=== PATIENT | female | born 1935 | race Caucasian/White ===

== ENCOUNTER 2017-05-04 10:55 | Outpatient (CLI) | payer MEDICARE ==
[~2017-05-04] VITALS: Ht 160 cm; Wt 51.3 kg
[~2017-05-04 10:55] MED LIST: POTA20LI2 PO; VRP240TCR PO
[2017-05-04] MEDS ORDERED: MELA1TAB27 PO (11:07)
[2017-05-04] MEDS ORDERED: SPIR1TAB PO (11:07)
[2017-05-04] MEDS ORDERED: DONE10TA41 PO (11:07)
[2017-05-11] MEDS ORDERED: TRAM50TA2 PO (12:46)
== END 2017-05-04 11:13 ==
LOC: PREOP 10:55
PROVIDERS: ATTEND Surgery
DX: Z01.818 Encounter for other preprocedural examination (principal); L98.9 Disorder of the skin and subcutaneous tissue, unspecified

== ENCOUNTER 2017-05-11 10:08 | Day surgery (SDC) | payer MEDICARE ==
[~2017-05-11] VITALS: Ht 160 cm; Wt 51.3 kg
[~2017-05-11 10:08] MED LIST changes: +DONE10TA41 PO; +MELA1TAB27 PO; +SPIR1TAB PO
[2017-05-11] MEDS ORDERED: ONDANSETRON 4 MG/2 ML (SDV) Z0FRAN ONE (10:40)
[2017-05-11] MEDS ORDERED: FAMOTIDINE 20MG/2ML IV (PEPCID) ONE (10:41)
[2017-05-11] MEDS ORDERED: BUP/EPI 0.5% 1:200,000 (MARCAINE) 10ML VIAL IJ ONE (10:42)
[2017-05-11] MEDS ORDERED: EPINEPHrine INJECTION 1 MG/ML AMP ONE (10:43)
[2017-05-11] MEDS ORDERED: DEXAMETHASONE 10 MG/ML (DECADRON) 1 ML VIAL ONE (10:44)
[2017-05-11] MEDS ORDERED: proPOfol 200 MG/20 ML (DIPRIVAN) VIAL IV ONE (10:44)
[2017-05-11] MEDS ORDERED: fentaNYL INJECTION 100 MCG/2 ML AMP ONE (10:44)
--- NOTE | 2017-05-11 10:49 | Progress Note-Pre Operative ---
Pre-Operative Progress Note H&P Reviewed The H&P was reviewed, patient examined and no changes noted. Date Seen by Provider: May 03, 2017 Time Seen by Provider: 13:10 Date H&P Reviewed: May 11, 2017 Time H&P Reviewed: 10:49 Pre-Operative Diagnosis: Skin lesion-left leg JEREMI KEN MD May 11, 2017 10:49 am
[2017-05-11] MEDS: LACTATED RINGERS 1,000 ML IV PRN ×2 (10:53→12:19)
[2017-05-11 11:00] VITALS: BP 141/62
[2017-05-11] MEDS ORDERED: ceFAZolin 1 GM/NS 50 ML IVPB IV ONE ×2 (11:00)
[2017-05-11] MEDS ORDERED: ONDANSETRON 4 MG/2 ML (SDV) Z0FRAN IV ONE (11:00)
[2017-05-11] MEDS ORDERED: FAMOTIDINE 20MG/2ML IV (PEPCID) IV ONE (11:00)
[2017-05-11] MEDS ORDERED: SEVOFLURANE (ULTANE) 15 ML INHAL SOLN ONE (12:21)
[2017-05-11] MEDS ORDERED: LACTATED RINGERS 2,000 ML IV ONE (12:21)
[2017-05-11] MEDS ORDERED: fentaNYL INJECTION 100 MCG/2 ML AMP IVP PRN (12:30)
[2017-05-11] MEDS ORDERED: morphine INJ 10 MG/ML 1ML (SYR OR VIAL) IVP PRN (12:30)
[2017-05-11] MEDS ORDERED: TRAM50TA2 PO (12:46)
--- NOTE | 2017-05-11 12:47 | Discharge Inst-Simple/Standard ---
Discharge Inst-Standard Discharge Medications New, Converted or Re-Newed RX: RX on Chart Patient Instructions/Follow Up Plan of Care/Instructions/FU: Left leg to be kept elevated. Dressings to stay intact till next Sunday. F/U with my nurse on Sunday for dressing change Activity as Tolerated: Yes Discharge Diet: No Restrictions JEREMI KEN MD May 11, 2017 12:47 pm
--- NOTE | 2017-05-11 12:48 | Discharge Inst-Simple/Standard ---
Discharge Inst-Standard Discharge Medications New, Converted or Re-Newed RX: RX on Chart Patient Instructions/Follow Up Plan of Care/Instructions/FU: Left leg to be kept elevated. Dressings to stay intact till next Sunday. F/U with my nurse on Sunday Activity as Tolerated: Yes Discharge Diet: No Restrictions JEREMI KEN MD May 11, 2017 12:48 pm
--- NOTE | 2017-05-11 13:13 | Operative Report ---
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 She was offered excision with frozen section to confirm the diagnosis and ensure negative margins, should a carcinoma be found, followed immediately by split-thickness skin grafting. Informed consent was obtained after reviewing the operative details and complications of postoperative wound infection, bleeding and failure of the graft. description of the procedure: She was placed supine on the operative table and general anesthesia induced. A gram of Ancef was administered intravenously as prophylaxis against wound infection. Left lower extremity was prepared and draped in the usual sterile manner. A split thickness skin graft was obtained from her left anterior thigh using the dermatome. It was placed in saline, to be prepared for grafting and the end of the operation. Pre-emptive analgesia was established using 0.5 percent Marcaine around the lesion over the left leg. A circular incision 5 cm longitudinally by 4 cm transversely was made and the lesion excised down to the deep fascia. It was oriented with silk sutures and sent for frozen section analysis. The pathologist confirmed a squamous cell carcinoma with negative margins. Hemostasis was achieved using cautery and topical dilute epinephrine solution. The skin graft was then prepared using the mesh dermatome and placed over the excision site, being secured with justice. A nonadherent dressing was then applied. She tolerated the procedure well, was extubated in the operating room and taken to the recovery room in a stable condition. Findings of the Procedure see operative report Allergies and Home Medications Allergies Coded Allergies: No Known Drug Allergies (Unverified , 09/26/11) Home Medications Donepezil HCl 10 Mg Tablet, 10 MG PO DAILY, (Reported) Melatonin/Pyridoxine HCl (B6) 1 Each Tablet, 3 MG PO HS, (Reported) Spironolact/Hydrochlorothiazid 1 Each Tablet, 1 EACH PO DAILY, (Reported) Tramadol HCl 50 Mg Tablet, 50 MG PO Q12H PRN for PAIN-MILD TO MODERATE, #20 Prescribed by: JEREMI KEN on 05/11/17 1246 JEREMI KEN MD May 11, 2017 1:13 pm
[2017-05-11 13:15] VITALS: BP 129/55
[2017-05-11 13:45] VITALS: BP 117/58
[2017-05-11 14:15] VITALS: BP 126/57
== END 2017-05-11 14:15 | disposition home or self-care (01) ==
LOC: SDC 10:08
PROVIDERS: ATTEND Surgery
DX: C44.729 Squamous cell carcinoma of skin of left lower limb, including hip (principal); I10 Essential (primary) hypertension; Z79.899 Other long term (current) drug therapy
CPT/HCPCS: 87081; 88305; 88331; 88332

== ENCOUNTER 2017-05-13 22:07 | Inpatient (IN) | payer MEDICARE ==
[~2017-05-13] VITALS: Ht 165.1 cm; Wt 55.6 kg
[~2017-05-13 22:07] MED LIST changes: +TRAM50TA2 PO
[2017-05-13] MEDS ORDERED: NS IV 500 ML 500 ML IV ONE (22:13)
--- NOTE | 2017-05-13 22:18 | ED Syncope ---
General Stated Complaint: FAINT Source of Information: Patient, Family (daughter) Exam Limitations: Physical Impairments (poor memory) History of Present Illness Time Seen by Provider: 22:11 Initial Comments Patient presents the ER by private conveyance with her niece who is sitting with her today with a chief complaint that she had passed out. The patient has recently had a skin cancer removed from her left lower leg by Dr. Ken, General Surgery. He then did a skin graft a few days ago and the family has been taking turns sitting with her 24 7 at her home in [facility]. The patient was doing well today without any complaint and was sitting in her easy chair started to get up and said she felt very unstable put her hands and air eyes rolled backwards and she fell backwards and fainted. Unsure if she had hit her head however the patient was not out for more than a few seconds. Patient gives a history of living with her parents who have been for many years and is not aware of the current situation or why she is had surgery. The niece says she did complain of some pain from the surgery so the surgeon who called also and tramadol and the patient received her first dose at 11:00 this morning and since that time has been acting a little drowsy. The patient has a unknown medicine she takes for sleep that was given about 8 to 9:00 tonight. After was given the patient was in her easy chair snoozing until the point that she got up to go to bed and then passed out and fell. The patient denies any pain, shortness of breath, chest pain, nausea, vomiting, diarrhea, rash, dysmobility. Allergies and Home Medications Allergies Coded Allergies: No Known Drug Allergies (Unverified , 09/26/11) Home Medications Donepezil HCl 10 Mg Tablet, 10 MG PO DAILY, (Reported) Melatonin/Pyridoxine HCl (B6) 1 Each Tablet, 3 MG PO HS, (Reported) Spironolact/Hydrochlorothiazid 1 Each Tablet, 1 EACH PO DAILY, (Reported) Tramadol HCl 50 Mg Tablet, 50 MG PO Q12H PRN for PAIN-MILD TO MODERATE, #20 Prescribed by: JEREMI KEN on 05/11/17 1246 Constitutional: see HPI (a thorough review of systems is unable to be completed as the patient does not give meaningful answers secondary to dementia. ) Past Veajomn-Njrkzj-Hwudja Hx Patient Social History Recent Foreign Travel: No Contact w/Someone Who Travel: No Recent Hopitalizations: No Immunizations Up To Date Date of Influenza Vaccine: Jun 26, 2011 Seasonal Allergies Seasonal Allergies: Yes Cardiovascular Cardiac Disorders: Hypertension Physical Exam Vital Signs Vital Sign - Last 12Hours 05/13/17 22:07 Temp 96.1 Pulse 65 Resp 17 B/P (MAP) 136/76 Pulse Ox 96 O2 Delivery Room Air Capillary Refill : General Appearance: No Apparent Distress, WD/WN, Thin HEENT: PERRL/EOMI, TMs Normal, Normal ENT Inspection, Pharynx Normal (oral mucosa is a little dry) Neck: Full Range of Motion, Normal Inspection, Non Tender, Supple Cardiovascular: Regular Rate, Rhythm, No Edema, No JVD, Normal Peripheral Pulses Respiratory: Chest Non Tender, Lungs Clear, Normal Breath Sounds, No Accessory Muscle Use Gastrointestinal: Normal Bowel Sounds, No Organomegaly, Non Tender, Soft Back: Normal Inspection, No CVA Tenderness, No Vertebral Tenderness Extremities: Normal Capillary Refill, Non Tender, No Calf Tenderness, No Pedal Edema Neurologic/Psychiatric: Alert, No Motor/Sensory Deficits, Normal Mood/Affect, analyst II-XII Norm as Tested, Other (oriented to self and place but not situation or time) Cranial Nerves: Normal Hearing, Normal Speech, PERRL Coordination/Gait: Normal Finger to Nose, Other (transfers with standby assist from wheelchair to bed.) Motor/Sensory: No Motor Deficit, No Sensory Deficit, No Pronator Drift Skin: Normal Color, Warm/Dry Lymphatic: No Adenopathy Focused Exam Evaluation Lactate Level Laboratory Tests 05/13/17 22:18: Lactic Acid Level 2.31*H Lactic Acid Level Laboratory Tests Test 05/13/17 22:18 Lactic Acid Level 2.31 MMOL/L (0.50-2.00) *H Progress/Results/Core Measures Results/Orders Lab Results Laboratory Tests Test 05/13/17 22:18 05/13/17 22:28 Range/Units White Blood Count 7.8 4.3-11.0 10^3/uL Red Blood Count 4.16 L 4.35-5.85 10^6/uL Hemoglobin 13.1 11.5-16.0 G/DL Hematocrit 40 35-52 % Mean Corpuscular Volume 96 80-99 FL Mean Corpuscular Hemoglobin 32 25-34 PG Mean Corpuscular Hemoglobin Concent 33 32-36 G/DL Red Cell Distribution Width 13.9 10.0-14.5 % Platelet Count 375 130-400 10^3/uL Mean Platelet Volume 9.0 7.4-10.4 FL Neutrophils (%) (Auto) 53 42-75 % Lymphocytes (%) (Auto) 27 12-44 % Monocytes (%) (Auto) 12 0-12 % Eosinophils (%) (Auto) 7 0-10 % Basophils (%) (Auto) 1 0-10 % Neutrophils # (Auto) 4.2 1.8-7.8 X 10^3 Lymphocytes # (Auto) 2.1 1.0-4.0 X 10^3 Monocytes # (Auto) 1.0 0.0-1.0 X 10^3 Eosinophils # (Auto) 0.6 H 0.0-0.3 10^3/uL Basophils # (Auto) 0.0 0.0-0.1 10^3/uL Sodium Level 139 135-145 MMOL/L Potassium Level 3.6 3.6-5.0 MMOL/L Chloride Level 99 98-107 MMOL/L Carbon Dioxide Level 28 21-32 MMOL/L Anion Gap 12 5-14 MMOL/L Blood Urea Nitrogen 22 H 7-18 MG/DL Creatinine 0.92 0.60-1.30 MG/DL Estimat Glomerular Filtration Rate 59 BUN/Creatinine Ratio 24 Glucose Level 136 H 70-105 MG/DL Lactic Acid Level 2.31 *H 0.50-2.00 MMOL/L Calcium Level 9.6 8.5-10.1 MG/DL Magnesium Level 2.3 1.8-2.4 MG/DL Total Bilirubin 0.3 0.1-1.0 MG/DL Aspartate Amino Transf (AST/SGOT) 19 5-34 U/L Alanine Aminotransferase (ALT/SGPT) 19 0-55 U/L Alkaline Phosphatase 149 H 40-136 U/L Total Protein 7.2 6.4-8.2 GM/DL Albumin 3.6 3.2-4.5 GM/DL Urine Color YELLOW Urine Clarity CLEAR Urine pH 6 5-9 Urine Specific [place] 1.020 1.016-1.022 Urine Protein 1+ H NEGATIVE Urine Glucose (UA) NEGATIVE NEGATIVE Urine Ketones NEGATIVE NEGATIVE Urine Nitrite NEGATIVE NEGATIVE Urine Bilirubin NEGATIVE NEGATIVE Urine Urobilinogen NORMAL NORMAL MG/DL Urine Leukocyte Esterase NEGATIVE NEGATIVE Urine RBC (Auto) NEGATIVE NEGATIVE Urine RBC RARE /HPF Urine WBC 0-2 /HPF Urine Crystals NONE /LPF Urine Bacteria TRACE /HPF Urine Casts NONE /LPF Urine Mucus SMALL H /LPF Urine Culture Indicated NO My Orders Orders - KAMARI KAUFMAN Ct Head/Cervical Spine Wo (05/13/17 22:13) Cbc With Automated Diff (05/13/17 22:13) Comprehensive Metabolic Panel (05/13/17 22:13) Lactic Acid Analyzer (05/13/17 22:13) Magnesium (05/13/17 22:13) Ua Culture If Indicated (05/13/17 22:13) Blood Culture (05/13/17 22:13) Chest 1 View, Ap/Pa Only (05/13/17 22:13) Saline Lock/Iv-Start (05/13/17 22:13) Ns Iv 500 Ml (Sodium Chloride 0.9%) (05/13/17 22:13) Ekg Tracing (05/13/17 22:15) Continuous Ekg Monitoring (05/13/17 22:15) Orthostatic Vital Signs (05/13/17 22:18) Aspirin Chewable Tablet (Baby Aspirin Ch (05/13/17 22:45) Saline Lock/Iv-Start (05/13/17 23:06) Ns Iv 1000 Ml (Sodium Chloride 0.9%) (05/13/17 23:06) Piperacillin Sodium/Tazobactam (Zosyn Vi (05/14/17 01:15) Medications Given in ED Current Medications Medications Dose Ordered Sig/Pelon Route Start Time Stop Time Status Last Admin Dose Admin Aspirin 324 mg ONCE ONCE PO 05/13/17 22:45 05/13/17 22:46 DC 05/13/17 22:39 324 MG Sodium Chloride 500 ml @ 0 mls/hr Q0M ONCE IV 05/13/17 22:13 05/13/17 22:16 DC 05/13/17 22:24 500 MLS/HR Sodium Chloride 1,000 ml @ 0 mls/hr Q0M ONCE IV 05/13/17 23:06 05/13/17 23:07 DC 05/13/17 23:19 1,000 MLS/HR Vital Signs/I&O Vital Sign - Last 12Hours 05/13/17 05/13/17 22:07 22:41 Temp 96.1 Pulse 65 70 75 74 Resp 17 B/P (MAP) 136/76 Pulse Ox 96 O2 Delivery Room Air ECG Initial ECG Impression Date: May 13, 2017 Initial ECG Impression Time: 22:09 Initial ECG Rate: 66 Initial ECG Rhythm: Normal Sinus Initial ECG Intervals: QT (499) Initial ECG Intervals QRS prolonged at 146. Initial ECG Impression: Normal, Nonspecific Changes Initial ECG Comparisson: No Previous ECG Available Comment Left bundle branch block with subsequent elevations in the anterior leads and a depression in the lateral leads. Diagnostic Imaging Diagonstic Imaging: Xray Plain Films/CT/US/NM/MRI: chest Reviewed: Reviewed by Me Diagonstic Imaging: CT Plain Films/CT/US/NM/MRI: c-spine, head Reviewed: Reviewed Night Rafael Study, Reviewed by Me Consults Consults : Consulting Physician: NURIA GUSMAN MD FACP [facility] CCDS Consults Notes Discussed the case at 2222 of the left bundle branch block but no symptoms other than syncope. He recommends aspirin and if the rest the workup for her syncope is negative then we can start her on Lovenox 1 mg/kg and he would consult the patient. He recommends clear liquid diet and the morning. Departure Communication (Admissions) Time/Spoke to Admitting Phy: 01:[address] Healy about the patient and her elevated lactate and possible cellulitis versus wound infection. He'll see the patient in the morning and consult surgery if needed. He agrees with the choice of vancomycin and Zosyn. Impression Impression: Primary Impression: Cellulitis Qualified Codes: L03.116 - Cellulitis of left lower limb Additional Impressions: Wound infection after surgery Qualified Codes: T81.4XXA - Infection following a procedure, initial encounter Sepsis Qualified Codes: A41.9 - Sepsis, unspecified organism Syncope Qualified Codes: R55 - Syncope and collapse Fall Qualified Codes: W19.XXXA - Unspecified fall, initial encounter Disposition: ADMITTED INPATIENT Condition: Stable Admissions Decision to Admit Reason: Admit from ER (General) Decision to Admit/Date: May 14, 2017 Time/Decision to Admit Time: 01:25 Departure-Patient Inst. Referrals: ATIYA HEALY MD (PCP) Primary Care Physician Copy Copies To 1: ATIYA HEALY MD Copies To 2: JEREMI KEN MD, TITUS J May 13, 2017 22:17
[2017-05-13 22:25] LABS: BASOPHILS % (AUTO) 1 % (0-10); EOSINOPHILS # (AUTO) 0.6 10^3/uL (0.0-0.3); EOSINOPHILS % (AUTO) 7 % (0-10); LYMPHOCYTES # (AUTO) 2.1 X 10^3 (1.0-4.0); LYMPHOCYTES % (AUTO) 27 % (12-44); MEAN CORPUSCULAR HEMOGLOBIN 32 PG (25-34); MEAN CORPUSCULAR HGB CONC 33 G/DL (32-36); MEAN CORPUSCULAR VOLUME 96 FL (80-99); MONOCYTES % (AUTO) 12 % (0-12); NEUTROPHILS # (AUTO) 4.2 X 10^3 (1.8-7.8); NEUTROPHILS % (AUTO) 53 % (42-75); PLATELET COUNT 375 10^3/uL (130-400); RED BLOOD COUNT 4.16 10^6/uL (4.35-5.85); RED CELL DISTRIBUTION WIDTH 13.9 % (10.0-14.5); WHITE BLOOD COUNT 7.8 10^3/uL (4.3-11.0)
[2017-05-13 22:40] LABS: BILIRUBIN,URINE NEGATIVE (NEGATIVE); KETONES,URINE NEGATIVE (NEGATIVE); LEUKOCYTE ESTERASE ,URINE NEGATIVE (NEGATIVE); NITRITE,URINE NEGATIVE (NEGATIVE); PH,URINE 6 (5-9); PROTEIN,URINE 1+ (NEGATIVE); UROBILINOGEN,URINE NORMAL (NORMAL)
[2017-05-13] MEDS ORDERED: ASPIRIN 81 MG CHEW (CHILDREN'S ASA) PO ONE (22:45)
[2017-05-13 22:51] LABS: ALBUMIN 3.6 GM/DL (3.2-4.5); BILIRUBIN,TOTAL 0.3 MG/DL (0.1-1.0); CALCIUM 9.6 MG/DL (8.5-10.1); CREATININE SERUM 0.92 MG/DL (0.60-1.30); MAGNESIUM 2.3 MG/DL (1.8-2.4); POTASSIUM 3.6 MMOL/L (3.6-5.0); TOTAL PROTEIN 7.2 GM/DL (6.4-8.2)
[2017-05-13 23:05] LABS: WBC,URINE 0-2 /HPF
[2017-05-13] MEDS ORDERED: NS IV 1000 ML 1,000 ML IV ONE (23:06)
[2017-05-14] MEDS ORDERED: PIPERACILLIN SODIUM/TAZOBACTAM 4.5 GM in NS (IVPB) 100 ML IV ONE (01:15)
[2017-05-14 02:10] VITALS: BP 121/62
[2017-05-14] MEDS ORDERED: NS IV 1000 ML 1,000 ML ONE (02:59)
[2017-05-14] MEDS: NS IV 1000 ML 1,000 ML IV SCH (03:56)
[2017-05-14 04:00] VITALS: BP 116/67
[2017-05-14] MEDS ORDERED: ONDANSETRON 4 MG/2 ML (SDV) Z0FRAN IV PRN (04:00)
[2017-05-14] MEDS ORDERED: VANCOMYCIN 1 GM/NS 250 ML IVPB IV ONE ×2 (04:00)
[2017-05-14] MEDS ORDERED: PIPERACILLIN/TAZOBACTAM 4.5 GM/NS100 ML IVPB IV SCH ×2 (07:15)
[2017-05-14 08:00] VITALS: BP 127/65
[2017-05-14] MEDS ORDERED: TRAM50TA2 PO (08:04)
--- NOTE | 2017-05-14 08:18 | Diagnostic Imaging Report ---
INDICATION: Syncope. Frontal chest obtained at 10:56 p.m. FINDINGS: Heart and mediastinal silhouette are normal in appearance. There is mild central vascular prominence with chronic appearing increased interstitial markings. There is no acute consolidation or pneumothorax or pleural fluid. IMPRESSION: Chronic changes as above with no acute abnormality. Dictated by: Dictated on workstation # [id number]
--- NOTE | 2017-05-14 08:28 | Diagnostic Imaging Report ---
PROCEDURE: CT head and CT cervical spine without contrast. TECHNIQUE: Multiple contiguous axial images were obtained through the brain and cervical spine without the use of intravenous contrast. Sagittal and coronal reformations through the cervical spine were then performed. INDICATION: Possible syncopal episode. FINDINGS: CT head: There is no intracranial hemorrhage, edema, or mass effect. There is periventricular and deep white matter hypodensities compatible with chronic microvascular ischemic changes. No extra-axial fluid collection is seen. There is asymmetry in the right occipital horn which could be a normal variant or related to ex vacuo dilatation from volume loss in the right occipital region, in part may relate to chronic microvascular ischemic changes. The calvarium and the paranasal sinuses appear unremarkable. There is suggestion of prior orbital surgery with hyperdense foci along the anterior aspect of the globes seen bilaterally. CT cervical spine: There is satisfactory alignment of the cervical spine. There is minimal anterior translation of C4 over C5. The vertebral body heights are preserved. 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 There is disc height loss and disc degenerative changes particularly prominent at C5-C6 level with posterior osteophytes seen at C4-C5, C5-C6, and C6-C7. There is multilevel prominent facet joint arthropathy also seen. No fracture seen. IMPRESSION: CT head: No intracranial hemorrhage. No acute process. CT cervical spine: Advanced degenerative changes. No fracture seen. Dictated by: Dictated on workstation # [id number]
[2017-05-14] MEDS ORDERED: MULT-35 PO (08:38)
[2017-05-14] MEDS ORDERED: LORA10TA76 PO (08:38)
--- NOTE | 2017-05-14 09:17 | Consultation-Cardiology ---
HPI-Cardiology Cardiology Consultation: Date of Consultation 05/14/17 Time Seen by Provider: 09:00 Date of Admission Attending Physician Baljeet Healy MD Admitting Physician Baljeet Healy MD Consulting Physician NURIA GUSMAN MD, MA, FACP, FACC, FSCAI, CCDS HPI: Chief Complaint: Passed out 81 yo woman who suffers from Alzheimer's, lives at home, and is cared for by family. She had removal of L leg skin cancer with grafting of the wound with a flap from the R leg on 05/11/[address] Stock. Was having leg pain yesterday morning, received Tramadol for that around 11 am. Had a syncopal episode around 9pm. Was sitting, head was hurting, then she became clammy and her eyes rolled back, remained seated. Apparently, this did not last long. She was brought to her ER. She did not have cp. Does not describe shortness of breath or palp Review of Systems-Cardiology Review of Systems Constitutional: tiredness, No weight loss Eyes: No vision change Ears/Nose/Throat: No ear discharge, No nasal drainage, No recent hearing loss Respiratory: As described under HPI Cardiovascular: As described under HPI Gastrointestinal: No constipation, No diarrhea, No nausea, No vomiting Genitourinary: No dysuria, No hematuria, No urine frequency changes Skin: As described under HPI Psychiatric/Neurological: syncope, No seizure, No focal weakness Hematologic: No bleeding abnormalities YBT-Fghvrb-Ghqbij Hx Patient Social History Alcohol Use: Denies Use Recreational Drug Use: No Smoking Status: Never a Smoker Recent Foreign Travel: No Recent Infectious Disease Expo: No Hospitalization with Isolation: Denies Physical Abuse Screen: No Sexual Abuse: No Immunizations Up To Date Date of Influenza Vaccine: Jun 26, 2011 Past Medical History PMH As described under Assessment. Family Medical History Family Medical History: Family h/o CAD (brothers) Allergies and Home Medications Allergies Coded Allergies: No Known Drug Allergies (Unverified , 09/26/11) Home Medications Donepezil HCl 10 Mg Tablet, 10 MG PO DAILY, (Reported) Loratadine 10 Mg Tablet, 10 MG PO DAILY PRN for ALLERGIES, (Reported) Melatonin/Pyridoxine HCl (B6) 1 Each Tablet, 3 MG PO HS, (Reported) Multivitamin 1 Each Tablet, 1 TAB PO DAILY, (Reported) Spironolact/Hydrochlorothiazid 1 Each Tablet, 1 TAB PO Q48H, (Reported) Tramadol HCl 50 Mg Tablet, 50 MG PO Q12H PRN for PAIN-MODERATE, (Reported) Physical Exam-Cardiology Physical Exam Vital Signs/I&O Vital Sign - Last 12Hours 05/13/17 05/13/17 05/14/17 05/14/17 22:07 22:41 01:57 02:10 Temp 96.1 97.0 Pulse 65 70 63 66 75 74 Resp 17 16 22 B/P (MAP) 136/76 121/62 Pulse Ox 96 99 100 O2 Delivery Room Air Room Air Room Air 05/14/17 05/14/17 05/14/17 02:15 02:52 04:00 Temp 96.8 Pulse 62 69 Resp 20 B/P (MAP) 116/67 Pulse Ox 95 O2 Delivery Room Air Room Air Capillary Refill : Less Than 3 Seconds Constitutional: No AAO x 3, well-developed, well-nourished, other (thin- appearing) HEENT: PERRL, EOMI Neck: No non-tender, carotid pulses are 2 + bilaterally, with good upstrokes Respiratory: No accessory muscle use, lungs clear to percussion, lungs clear to auscultation Cardiovascular: regular rate-rhythm, S1 and S2, systolic murmur (faint ZION at cardiac base) Gastrointestinal: No tender, soft, No guarding, No rebound, audible bowel sounds Extremities: No clubbing, No cyanosis, No significant edema Neurologic/Psychiatric: other (confused, moving all limbs equally) Skin: No rash on exposed areas, No ulcerations on exposed areas, other (parts of lower limbs under dressing) Data Review Labs Laboratory Tests 05/13/17 22:18: White Blood Count 7.8, Red Blood Count 4.16L, Hemoglobin 13.1, Hematocrit 40, Mean Corpuscular Volume 96, Mean Corpuscular Hemoglobin 32, Mean Corpuscular Hemoglobin Concent 33, Red Cell Distribution Width 13.9, Platelet Count 375, Mean Platelet Volume 9.0, Neutrophils (%) (Auto) 53, Lymphocytes (%) (Auto) 27, Monocytes (%) (Auto) 12, Eosinophils (%) (Auto) 7, Basophils (%) (Auto) 1, Neutrophils # (Auto) 4.2, Lymphocytes # (Auto) 2.1, Monocytes # (Auto) 1.0, Eosinophils # (Auto) 0.6H, Basophils # (Auto) 0.0, Sodium Level 139, Potassium Level 3.6, Chloride Level 99, Carbon Dioxide Level 28, Anion Gap 12, Blood Urea Nitrogen 22H, Creatinine 0.92, Estimat Glomerular Filtration Rate 59, BUN/ Creatinine Ratio 24, Glucose Level 136H, Lactic Acid Level 2.31*H, Calcium Level 9.6, Magnesium Level 2.3, Total Bilirubin 0.3, Aspartate Amino Transf (AST /SGOT) 19, Alanine Aminotransferase (ALT/SGPT) 19, Alkaline Phosphatase 149H, Total Protein 7.2, Albumin 3.6 05/13/17 22:28: Urine Color YELLOW, Urine Clarity CLEAR, Urine pH 6, Urine Specific [place] 1.020, Urine Protein 1+H, Urine Glucose (UA) NEGATIVE, Urine Ketones NEGATIVE, Urine Nitrite NEGATIVE, Urine Bilirubin NEGATIVE, Urine Urobilinogen NORMAL, Urine Leukocyte Esterase NEGATIVE, Urine RBC (Auto) NEGATIVE, Urine RBC RARE, Urine WBC 0-2, Urine Crystals NONE, Urine Bacteria TRACE, Urine Casts NONE, Urine Mucus SMALLH, Urine Culture Indicated NO 05/14/17 01:30: Lactic Acid Level 1.46 Laboratory Tests 05/13/17 22:18 A/P-Cardiology Assessment/Admission Diagnosis Syncope of undetermined etiology S/p surgery for squamous cell CA of the L leg with skin grafting from the opposite leg on 05/11/17 Question of sepsis (being addressed by the Med Svce) LBBB, probably chronic (no old ECG available) No evidence of ac UT Alzheimer's dementia Discussion and Recomendations Cardiac d/d of syncope include vasovagal (due to pain) or dehydration or arrhythmia Keep on tele Echo Continue ASA Lovenox for DVT prophylaxis Monitor labs Possible d/c tomorrow with an event monitor Clinical Quality Measures DVT/VTE Risk/Contraindication: Risk Factor Score Per Nursin RFS Level Per Nursing on Admit: 4+=Very High NURIA GUSMAN MD FACP [facility] CCDS May 14, 2017 09:17
--- NOTE | 2017-05-14 11:35 | History & Physical-Hospitalist ---
HPI History of Present Illness: HPI/Chief Complaint CC: Passing out HPI: 81yoCf with a PMH of Alzheimers and recent SCC excision and grafting on who presented for evaluation of syncope. History is limited due to patient 's dementia. Niece at beside was not present when incident happened but was aware of some details. When I asked the patient what happened she stated 'I went to the grocery store yesterday." Niece states that she was sitting in a chair and passed out. She is unsure of for how long but thinks it was a very short time. She was somewhat confused afterwards. She did not have any convulsions. Patient denies any complaints or recollection of event. Source: patient, family Exam Limitations: clinical condition Date Seen 05/14/17 Time Seen by Provider: 11:00 Attending Physician Atiya Healy MD PCP Atiya Healy MD Referring Physician NURIA GUSMAN MD FACP FACC CCDS Date of Admission May 14, 2017 at 01:30 Home Medications & Allergies Home Medications Reviewed patient Home Medication Reconciliation Form Allergies Allergies Coded Allergies No Known Drug Allergies (Unverified09/26/11) Past Hjovthd-Tivlld-Noqomn Hx Patient Social History Alcohol Use: Denies Use Recreational Drug Use: No Smoking Status: Never a Smoker Physical Abuse Screen: No Sexual Abuse: No Recent Foreign Travel: No Contact w/other who traveled: No Recent Hopitalizations: No Recent Infectious Disease Expo: No Immunizations Up To Date Date of Influenza Vaccine: Jun 26, 2011 Seasonal Allergies Seasonal Allergies: No Surgeries Yes Respiratory No Cardiovascular Yes (mitral valve prolapse) Hypertension Neurological Yes Dementia Genitourinary No Gastrointestinal No Musculoskeletal No Endocrine History of Endocrine Disorders: No HEENT History of HEENT Disorders: No Cancer Yes (squamous cell carcinoma) Skin Psychosocial History of Psychiatric Problem: No Integumentary History of Skin or Integumenta: No Blood Transfusions History of Blood Disorders: No Adverse Reaction to a Blood Tr: No Family Medical History Significant Family History: No Pertinent Family Hx Review of Systems ROS-Unable to Obtain: limited due to dementia Constitutional: no symptoms reported, No fever EENTM: nose congestion, throat pain Respiratory: cough Cardiovascular: no symptoms reported Gastrointestinal: No abdominal pain Genitourinary: no symptoms reported Musculoskeletal: no symptoms reported Skin: hx of skin cancer Psychiatric/Neurological: See HPI Physical Exam Physical Exam Vital Signs Vital Sign - Last 12Hours 05/13/17 22:07 Temp 96.1 Pulse 65 Resp 17 B/P (MAP) 136/76 Pulse Ox 96 O2 Delivery Room Air Capillary Refill : Less Than 3 Seconds General Appearance: No Apparent Distress, WD/WN Neck: Non Tender, Supple Respiratory: Chest Non Tender, Normal Breath Sounds Cardiovascular: Regular Rate, Rhythm, No Edema, No JVD, No Murmur Gastrointestinal: Normal Bowel Sounds, Soft Genital/Rectal: Other (cai in place) Extremity: Normal Capillary Refill, No Pedal Edema Neurologic/Psychiatric: Alert, Disoriented x3 Skin: Other (left lower extremity with dressings of upper and lower leg- some erythema distally) Results Results/Procedures Lab Laboratory Tests 05/13/17 22:18 Assessment/Plan Admission Diagnosis Syncope Assessment and Plan See Problems Diagnosis/Problems Diagnosis/Problems (1) Syncope Status: Acute Assessment & Plan: Etiology unclear at this time though favorite volume depletion given lactic acidosis Cardiology consulted, appreciate recs Will get echo and monitor on telemetry Continue IVF Qualifiers: Qualified Codes: R55 - Syncope and collapse (2) Cellulitis Status: Acute Assessment & Plan: Will continue Vanc/Zosyn given recent surgical procedure Surgery consulted for evaluation of surgical and graft site Qualifiers: Qualified Codes: L03.116 - Cellulitis of left lower limb (3) Essential (primary) hypertension Status: Chronic Assessment & Plan: Well controlled currently, will hold home meds (4) Alzheimer disease Status: Chronic Assessment & Plan: At baseline per niece who is primary mems process engineer Continue Aricept (5) Prophylactic measure Assessment & Plan: regular diet Lovenox NS at 52 Copy Copies To 1: ATIYA HEALY MD Clinical Quality Measures DVT/VTE Risk/Contraindication: Risk Factor Score Per Nursin RFS Level Per Nursing on Admit: 4+=Very High JUDE TOLENTINO MD May 14, 2017 11:35
[2017-05-14] MEDS ORDERED: VANCOMYCIN INJECTION 0.1 MG in NS (IVPB) 250 ML IV SCH (11:45)
[2017-05-14 12:00] VITALS: BP 120/58
[2017-05-14] MEDS: MONTELUKAST 10 MG (SINGULAIR) TAB PO SCH ×2 (13:49→20:52)
[2017-05-14] MEDS: PIPERACILLIN SODIUM/TAZOBACTAM 4.5 GM in NS (IVPB) 100 ML IV SCH ×2 (13:50→22:50)
--- NOTE | 2017-05-14 17:34 | Progress Note-Standard ---
Standard Progress Note Progress Notes/Assess & Plan Date Seen by Provider: May 14, 2017 Time Seen by Provider: 14:50 Progress/Assessment & Plan This lady underwent excision of a squamous cell carcinoma from her leg followed immediately by split-thickness skin grafting, as an outpatient on 05/11/17. She developed syncope during the late hours of 05/13/17 and has since been admitted. Upon my examination, she appears to be reasonably close to her baseline status , having normal vital signs. Postoperative changes are seen around the distal leg and I have reassured her. 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 Syncope JEREMI KEN MD May 14, 2017 17:34
[2017-05-14 19:12] VITALS: BP 127/60
[2017-05-14] MEDS: ENOXAPARIN 30 MG/0.3 ML (LOVENOX) SYR SC SCH (20:52)
[2017-05-14] MEDS: VANCOMYCIN 1 GM/NS 250 ML IVPB IV SCH ×2 (20:52)
[2017-05-14] MEDS ORDERED: MELATONIN 3 MG TABLET PO ONE (23:05)
[2017-05-14] MEDS: MELATONIN 3 MG TABLET PO SCH (23:15)
[2017-05-15] VITALS: BP 148/74
[2017-05-15] MEDS: NS IV 1000 ML 1,000 ML IV SCH (03:01)
[2017-05-15 04:00] VITALS: BP 139/86
[2017-05-15] MEDS: PIPERACILLIN SODIUM/TAZOBACTAM 4.5 GM in NS (IVPB) 100 ML IV SCH ×3 (05:09→21:36)
[2017-05-15 05:43] LABS: BASOPHILS % (AUTO) 0 % (0-10); EOSINOPHILS # (AUTO) 0.6 10^3/uL (0.0-0.3); EOSINOPHILS % (AUTO) 12 % (0-10); LYMPHOCYTES # (AUTO) 1.4 X 10^3 (1.0-4.0); LYMPHOCYTES % (AUTO) 28 % (12-44); MEAN CORPUSCULAR HEMOGLOBIN 32 PG (25-34); MEAN CORPUSCULAR HGB CONC 33 G/DL (32-36); MEAN CORPUSCULAR VOLUME 96 FL (80-99); MEAN PLATELET VOLUME 8.9 FL (7.4-10.4); MONOCYTES # (AUTO) 0.6 X 10^3 (0.0-1.0); MONOCYTES % (AUTO) 12 % (0-12); NEUTROPHILS # (AUTO) 2.3 X 10^3 (1.8-7.8); NEUTROPHILS % (AUTO) 48 % (42-75); PLATELET COUNT 294 10^3/uL (130-400); RED BLOOD COUNT 3.65 10^6/uL (4.35-5.85); RED CELL DISTRIBUTION WIDTH 14.1 % (10.0-14.5); WHITE BLOOD COUNT 4.8 10^3/uL (4.3-11.0)
[2017-05-15 06:04] LABS: ALANINE AMINOTRANSFERASE 17 U/L (0-55); ALBUMIN 2.9 GM/DL (3.2-4.5); ANION GAP 8 MMOL/L (5-14); ASPARTATE AMINO TRANSFERASE 18 U/L (5-34); BILIRUBIN,TOTAL 0.4 MG/DL (0.1-1.0); BLOOD UREA NITROGEN 13 MG/DL (7-18); BUN/CREATININE RATIO 17; CALCIUM 8.4 MG/DL (8.5-10.1); CARBON DIOXIDE 23 MMOL/L (21-32); CHLORIDE 110 MMOL/L (98-107); CREATININE SERUM 0.76 MG/DL (0.60-1.30); GFR ESTIMATED > 60; GLUCOSE 93 MG/DL (70-105); MAGNESIUM 2.1 MG/DL (1.8-2.4); POTASSIUM 3.7 MMOL/L (3.6-5.0); SODIUM 141 MMOL/L (135-145); TOTAL PROTEIN 5.3 GM/DL (6.4-8.2)
[2017-05-15 06:23] LABS: THYROID STIMULATING HORMONE 0.97 UIU/ML (0.35-4.94)
[2017-05-15 08:00] VITALS: BP 99/52
[2017-05-15] MEDS: ASPIRIN 81 MG CHEW (CHILDREN'S ASA) PO SCH (08:07)
[2017-05-15] MEDS ORDERED: DONEPEZIL 10 MG (ARICEPT) TAB PO NR (09:15)
--- NOTE | 2017-05-15 09:28 | Progress Note-Hospitalist ---
Subjective HPI/CC On Admission Date Seen by Provider: May 15, 2017 Time Seen by Provider: 08:40 CC: Passing out HPI: 81yoCf with a PMH of Alzheimers and recent SCC excision and grafting on who presented for evaluation of syncope. History is limited due to patient 's dementia. Niece at beside was not present when incident happened but was aware of some details. When I asked the patient what happened she stated 'I went to the grocery store yesterday." Niece states that she was sitting in a chair and passed out. She is unsure of for how long but thinks it was a very short time. She was somewhat confused afterwards. She did not have any convulsions. Patient denies any complaints or recollection of event. Subjective/Events-last exam Mrs. Najera voices no complaints reports that She wants to go home. For the most part she was pleasant during the interview but at one point became agitated insistent that she wanted to go home. she was easily redirected. She denies leg pain dizziness or chest discomfort. Objective Exam Vital Signs Vital Sign - Last 12Hours 05/13/17 22:07 Temp 96.1 Pulse 65 Resp 17 B/P (MAP) 136/76 Pulse Ox 96 O2 Delivery Room Air Capillary Refill : Less Than 3 Seconds General Appearance: No Apparent Distress, Anxious Respiratory: Chest Non Tender, Lungs Clear, Normal Breath Sounds, No Accessory Muscle Use, No Respiratory Distress Cardiovascular: Regular Rate, Rhythm, No Edema, No Gallop, No JVD, No Murmur, Normal Peripheral Pulses Gastrointestinal: Normal Bowel Sounds, No Organomegaly, No Pulsatile Mass, Non Tender, Soft Skin: Normal Color, Warm/Dry, Other (Left lower extremity bandaged no evidence for pedal edema no inguinal adenopathy or erythema above bandaging.) Results/Procedures Lab Laboratory Tests 05/15/17 05:10 Assessment/Plan Assessment and Plan Assess & Plan/Chief Complaint 1. Syncope likely due to dehydration with resultant hypovolemia. Echo pending no significant arrhythmias noted on Telemetry thus far. 2. Lactic acidosis secondary to number 1 resolved with IV hydration will DC IV fluids. 3. Questionable postoperative cellulitis post large squamous cell skin cancer excision left tibia with skin graft left thigh continue antibiotics for now. 4. Moderately advanced Alzheimer' dementia resume Aricept. DC Lezama catheter. Diagnosis/Problems Diagnosis/Problems (1) Syncope Status: Acute Assessment & Plan: Etiology unclear at this time though favorite volume depletion given lactic acidosis Cardiology consulted, appreciate recs Will get echo and monitor on telemetry Continue IVF Qualifiers: Qualified Codes: R55 - Syncope and collapse (2) Cellulitis Status: Acute Assessment & Plan: Will continue Vanc/Zosyn given recent surgical procedure Surgery consulted for evaluation of surgical and graft site Qualifiers: Qualified Codes: L03.116 - Cellulitis of left lower limb (3) Essential (primary) hypertension Status: Chronic Assessment & Plan: Well controlled currently, will hold home meds (4) Alzheimer disease Status: Chronic Assessment & Plan: At baseline per niece who is primary gas engine operator Continue Aricept (5) Prophylactic measure Assessment & Plan: regular diet Lovenox NS at 52 ATIYA HILLS MD May 15, 2017 09:28
[2017-05-15] MEDS ORDERED: LORazepam INJ 2 MG/ML (ATIVAN) VIAL IVP PRN (09:30)
--- NOTE | 2017-05-15 09:53 | Progress Note-Cardiology ---
Cardiology SOAP Progress Note Subjective: In bed with family x2 at the bedside. She denies any CP, dyspnea, dizziness, syncope or near syncope. Objective: I&O/Vital Signs Vital Sign - Last 12Hours 05/15/17 05/15/17 05/15/17 05/15/17 04:00 07:00 07:13 08:00 Temp 98.2 97.0 Pulse 79 70 86 68 Resp 18 14 B/P (MAP) 139/86 99/52 Pulse Ox 97 92 O2 Delivery Room Air Room Air 05/15/17 11:59 Temp 97.0 Pulse 69 Resp 20 B/P (MAP) 150/71 Pulse Ox 96 O2 Delivery Room Air Intake and Output 05/16/17 00:00 Intake Total 400 ml Output Total 700 ml Balance -300 ml Weight (Pounds): 122 Weight (Ounces): 8.0 Weight (Calculated Kilograms): 55.833845 Constitutional: No AAO x 3, well-developed, well-nourished, other (thin- appearing) Respiratory: No accessory muscle use, lungs clear to percussion, lungs clear to auscultation Cardiovascular: regular rate-rhythm, S1 and S2, systolic murmur (faint ZION at cardiac base) Gastrointestional: No tender, soft, No guarding, No rebound, audible bowel sounds Extremities: No clubbing, No cyanosis, No significant edema Neurologic/Psychiatric: other (confused, moving all limbs equally) Skin: No rash on exposed areas, No ulcerations on exposed areas, other (parts of lower limbs under dressing) Results/Procedures: Labs Laboratory Tests 05/15/17 05:10: White Blood Count 4.8, Red Blood Count 3.65L, Hemoglobin 11.6, Hematocrit 35, Mean Corpuscular Volume 96, Mean Corpuscular Hemoglobin 32, Mean Corpuscular Hemoglobin Concent 33, Red Cell Distribution Width 14.1, Platelet Count 294, Mean Platelet Volume 8.9, Neutrophils (%) (Auto) 48, Lymphocytes (%) (Auto) 28, Monocytes (%) (Auto) 12, Eosinophils (%) (Auto) 12H, Basophils (%) (Auto) 0, Neutrophils # (Auto) 2.3, Lymphocytes # (Auto) 1.4, Monocytes # (Auto) 0.6, Eosinophils # (Auto) 0.6H, Basophils # (Auto) 0.0, Sodium Level 141, Potassium Level 3.7, Chloride Level 110H, Carbon Dioxide Level 23, Anion Gap 8, Blood Urea Nitrogen 13, Creatinine 0.76, Estimat Glomerular Filtration Rate > 60, BUN/ Creatinine Ratio 17, Glucose Level 93, Calcium Level 8.4L, Magnesium Level 2.1, Total Bilirubin 0.4, Aspartate Amino Transf (AST/SGOT) 18, Alanine Aminotransferase (ALT/SGPT) 17, Alkaline Phosphatase 116, Total Protein 5.3L, Albumin 2.9L, Thyroid Stimulating Hormone (TSH) 0.97 Microbiology 05/13/17 Blood Culture - Preliminary, Resulted No growth Laboratory Tests 05/13/17 22:18 05/15/17 05:10 A/P: Assessment: Syncope of undetermined etiology Echo of 05/15/17: LVEF 50-55%, paradoxical septal motion (probably due to LBBB), pulm artery systolic pressure approx 30-35 mmHg S/p surgery for squamous cell CA of the L leg with skin grafting from the opposite leg on 05/11/17 Dehydration (being addressed by the Med Svce) LBBB, probably chronic (no old ECG available) No evidence of ac [place] Alzheimer's dementia Plan: Cardiac d/d of syncope include vasovagal (due to pain) or dehydration or arrhythmia Keep on tele - no evidence of arrhythmia thus far Echo - pending Continue ASA Lovenox for DVT prophylaxis Monitor labs When ready for D/C from medical/surgical stand point we advise event monitor Physician Assessment Physician Assessment Confused Lungs: fair air entry Cor: reg Ext: no c/c/e A&R * As documented in our note above that I updated (italics) and as noted below * Ok to discharge from cardiac standpoint MAGDA WILKERSON CONSULTING NETWORKING ENGINEER May 15, 2017 09:53 NURIA GUSMAN MD [facility] May 15, 2017 15:18
[2017-05-15 11:59] VITALS: BP 150/71
[2017-05-15] MEDS: ACETAMINOPHEN 500 MG TAB (TYLENOL) PO PRN (13:12)
[2017-05-15 16:32] VITALS: BP 135/73
[2017-05-15] MEDS: VANCOMYCIN 1 GM/NS 250 ML IVPB IV SCH ×2 (17:52)
[2017-05-15 20:00] VITALS: BP 147/81
[2017-05-15] MEDS: MONTELUKAST 10 MG (SINGULAIR) TAB PO SCH (20:01)
[2017-05-15] MEDS: ENOXAPARIN 30 MG/0.3 ML (LOVENOX) SYR SC SCH (20:01)
[2017-05-15] MEDS: MELATONIN 3 MG TABLET PO SCH (23:38)
[2017-05-16] VITALS: BP 110/55
[2017-05-16 04:00] VITALS: BP 122/64
[2017-05-16] MEDS: PIPERACILLIN SODIUM/TAZOBACTAM 4.5 GM in NS (IVPB) 100 ML IV SCH ×2 (06:01→15:33)
[2017-05-16] MEDS ORDERED: MONT10TA21 PO (07:19)
[2017-05-16 08:18] VITALS: BP 117/63
--- NOTE | 2017-05-16 08:43 | Progress Note-Cardiology ---
Cardiology SOAP Progress Note Subjective: No cp or palp or syncope Sitting up in bed and being fed breakfast by family Objective: I&O/Vital Signs Vital Sign - Last 12Hours 05/16/17 05/16/17 05/16/17 00:00 04:00 08:18 Temp 97.7 97.8 98.0 Pulse 77 68 70 Resp 16 19 18 B/P (MAP) 110/55 122/64 117/63 Pulse Ox 96 97 98 O2 Delivery Room Air Room Air Room Air Weight (Pounds): 122 Weight (Ounces): 8.0 Weight (Calculated Kilograms): 55.575497 Constitutional: No AAO x 3, well-developed, well-nourished, other (thin- appearing) Respiratory: No accessory muscle use, lungs clear to percussion, lungs clear to auscultation Cardiovascular: regular rate-rhythm, S1 and S2, systolic murmur (faint ZION at cardiac base) Gastrointestional: No tender, soft, No guarding, No rebound, audible bowel sounds Extremities: No clubbing, No cyanosis, No significant edema Neurologic/Psychiatric: other (confused, moving all limbs equally) Skin: No rash on exposed areas, No ulcerations on exposed areas, other (parts of lower limbs under dressing) Results/Procedures: Labs Microbiology 05/13/17 Blood Culture - Preliminary, Resulted No growth Laboratory Tests 05/15/17 05:10 A/P: Assessment: Syncope of undetermined etiology, probably related to dehydration/transient low bp Echo of 05/15/17: LVEF 50-55%, paradoxical septal motion (probably due to LBBB), pulm artery systolic pressure approx 30-35 mmHg S/p surgery for squamous cell CA of the L leg with skin grafting from the opposite leg on 05/11/17 Dehydration (being addressed by the Med Svce) LBBB, probably chronic (no old ECG available) No evidence of ac [place] Alzheimer's dementia Plan: No significant arrhythmia documented Syncope may have been due to low bp due to dehydration Echo results described above Discussed with Dr Healy Ok to discharge from card standpoint Outpatient card f/u advised NURIA GUSMAN MD FACP [facility] May 16, 2017 08:43
[2017-05-16] MEDS ORDERED: DONEPEZIL 10 MG (ARICEPT) TAB PO SCH (09:00)
[2017-05-16] MEDS: ASPIRIN 81 MG CHEW (CHILDREN'S ASA) PO SCH (09:23)
[2017-05-16 12:00] VITALS: BP 135/75
[2017-05-16] MEDS ORDERED: TROUGH ORDER-PHARMACY XX NR (15:00)
[2017-05-16] MEDS: ACETAMINOPHEN 500 MG TAB (TYLENOL) PO PRN (15:40)
[2017-05-16 16:00] VITALS: BP 134/77
--- NOTE | 2017-05-18 11:22 | Physician Query Clarification ---
PQ-Further Specificity Admission/Discharge Admission Date: May 14, 2017 at 01:30 Discharge Date: May 16, 2017 at 16:30 The medical record reflects the following clinical scenario: History/Risk Factors: Recent excision of squamous cell carcinoma. Skin graft left thigh Clinical Findings: WBC 7.8, Lactic acid 2.31, T96.1, Pulse 65, BP 136/76 Treatment: Antibiotics-Zosyn and Vancomycin Question: Can you further specify Cellulitis of left lower limb per the clinical indicators above? Please document below. 1. Infection/Cellulitis, left lower limb, related to recent procedure. 2. Cellulitis ruled out. 3. Other, with explanation of the clinical findings. 4. Clinically undetermined, no explanation for the clinical findings. PHYSICIAN RESPONSE Can you specify per above: 1 In responding to this query, please exercise your independent professional judgment. The purpose of this communication is to more accurately reflect the complexity of your patients condition. The fact that a question is asked does not imply that any particular answer is desired or expected. Thank you for your timely response to this clarification. Requestors name: [ ] Phone # [ ] THIS PHYSICIAN QUERY FORM IS A PERMANENT PART OF THE MEDICAL RECORD ANGELO FREED May 18, 2017 11:22 ATIYA HILLS MD May 18, 2017 13:37
== END 2017-05-16 16:30 | disposition home or self-care (01) | DRG 857 ==
LOC: EDUNIT# 22:09 → ER 22:11 → 4TH 05-14 01:30
PROVIDERS: ADMIT Internal Medicine; ATTEND Internal Medicine
PROC: 0HRLX74 Replacement of Left Lower Leg Skin with Autologous Tissue Substitute, Partial Thickness, External Approach (ICD-10-PCS; principal; 2017-05-11)
PROC: 0HBJXZZ Excision of Left Upper Leg Skin, External Approach (ICD-10-PCS; 2017-05-11)
DX: T81.4XXA Infection following a procedure, initial encounter (principal); L03.116 Cellulitis of left lower limb; E86.0 Dehydration; E86.1 Hypovolemia; E87.2 Acidosis; C44.729 Squamous cell carcinoma of skin of left lower limb, including hip; I10 Essential (primary) hypertension; I44.7 Left bundle-branch block, unspecified; I34.1 Nonrheumatic mitral (valve) prolapse; G30.9 Alzheimer's disease, unspecified; F02.80 Dementia in other diseases classified elsewhere, unspecified severity, without behavioral disturbance, psychotic disturbance, mood disturbance, and anxiety; J30.2 Other seasonal allergic rhinitis; W18.39XA Other fall on same level, initial encounter; Y92.009 Unspecified place in unspecified non-institutional (private) residence as the place of occurrence of the external cause; Z85.828 Personal history of other malignant neoplasm of skin
CPT/HCPCS: 36415; 70450; 71010; 72125; 80053; 80202; 81000; 83605; 83735; 84443; 85025; 87040; 87081; 88305; 88331; 88332; 93005; 93306; 96361; 96365

== ENCOUNTER 2017-05-31 09:42 | Emergency (ER) | payer MEDICARE ==
[~2017-05-31] VITALS: Ht 170.2 cm; Wt 65.8 kg
[~2017-05-31 09:42] MED LIST changes: +LORA10TA76 PO; +MONT10TA21 PO; +MULT-35 PO
[2017-05-31 10:28] LABS: BASOPHILS % (AUTO) 1 % (0-10); EOSINOPHILS # (AUTO) 0.8 10^3/uL (0.0-0.3); EOSINOPHILS % (AUTO) 11 % (0-10); LYMPHOCYTES # (AUTO) 2.8 X 10^3 (1.0-4.0); LYMPHOCYTES % (AUTO) 39 % (12-44); MEAN CORPUSCULAR HEMOGLOBIN 31 PG (25-34); MEAN CORPUSCULAR HGB CONC 33 G/DL (32-36); MEAN CORPUSCULAR VOLUME 96 FL (80-99); MEAN PLATELET VOLUME 9.2 FL (7.4-10.4); MONOCYTES # (AUTO) 0.5 X 10^3 (0.0-1.0); MONOCYTES % (AUTO) 7 % (0-12); NEUTROPHILS % (AUTO) 42 % (42-75); PLATELET COUNT 425 10^3/uL (130-400); RED BLOOD COUNT 4.29 10^6/uL (4.35-5.85); RED CELL DISTRIBUTION WIDTH 13.9 % (10.0-14.5); WHITE BLOOD COUNT 7.2 10^3/uL (4.3-11.0)
[2017-05-31 10:38] LABS: ALANINE AMINOTRANSFERASE 16 U/L (0-55); ALBUMIN 3.6 GM/DL (3.2-4.5); ANION GAP 9 MMOL/L (5-14); ASPARTATE AMINO TRANSFERASE 22 U/L (5-34); BILIRUBIN,TOTAL 0.3 MG/DL (0.1-1.0); BLOOD UREA NITROGEN 15 MG/DL (7-18); BUN/CREATININE RATIO 19; CALCIUM 9.7 MG/DL (8.5-10.1); CARBON DIOXIDE 30 MMOL/L (21-32); CHLORIDE 102 MMOL/L (98-107); CREATININE SERUM 0.79 MG/DL (0.60-1.30); GFR ESTIMATED > 60; GLUCOSE 129 MG/DL (70-105); POTASSIUM 3.5 MMOL/L (3.6-5.0); SODIUM 141 MMOL/L (135-145); TOTAL PROTEIN 7.5 GM/DL (6.4-8.2)
[2017-05-31] MEDS ORDERED: ONDANSETRON 4 MG/2 ML (SDV) Z0FRAN ONE (10:41)
--- NOTE | 2017-05-31 10:44 | ED Neurological Problem ---
General Chief Complaint: Neurological Problems Stated Complaint: SEIZURE Source: family Exam Limitations: no limitations History of Present Illness Time seen by provider: 10:39 Initial Comments The patient is a 81-year-old white female who was brought by ambulance after apparently having a seizure at home. She was admitted here briefly 2 weeks ago after a syncopal or seizure episode. The patient has Alzheimer's disease and is not and was not very alert in either event. At that time the patient had apparently been sitting in a chair. Today she apparently fell during the event. She is sleepy but arousable. Timing/Duration: 1-3 hours Associated Symptoms: denies symptoms Allergies and Home Medications Allergies Coded Allergies: No Known Drug Allergies (Unverified , 09/26/11) Home Medications Donepezil HCl 10 Mg Tablet, 10 MG PO DAILY, (Reported) Melatonin/Pyridoxine HCl (B6) 1 Each Tablet, 3 MG PO HS, (Reported) Montelukast Sodium 10 Mg Tablet, 10 MG PO DAILY for 30 Days, #30 Ref 11 Prescribed by: ATIYA HILLS on 05/16/17 0719 Multivitamin 1 Each Tablet, 1 TAB PO DAILY, (Reported) Tramadol HCl 50 Mg Tablet, 50 MG PO Q12H PRN for PAIN-MODERATE, (Reported) Constitutional: see HPI Eyes: No Symptoms Reported Ears, Nose, Mouth, Throat: no symptoms reported Respiratory: no symptoms reported Cardiovascular: no symptoms reported Genitourinary: no symptoms reported Musculoskeletal: no symptoms reported Skin: no symptoms reported Psychiatric/Neurological: Cognitive Dysfunction, Other (possible seizure) Endocrine: No Symptoms Reported Hematologic/Lymphatic: No Symptoms Reported Past Pcvoymr-Fmsoul-Fvbdwr Hx Patient Social History Recent Hopitalizations: No Immunizations Up To Date Date of Influenza Vaccine: Jun 26, 2011 Seasonal Allergies Seasonal Allergies: No Surgeries History of Surgeries: Yes Respiratory History of Respiratory Disorde: No Cardiovascular History of Cardiac Disorders: Yes (mitral valve prolapse) Cardiac Disorders: Hypertension Neurological History of Neurological Disord: Yes Neurological Disorders: Dementia Genitourinary History of Genitourinary Disor: No Gastrointestinal History of Gastrointestinal Di: No Musculoskeletal History of Musculoskeletal Dis: No Endocrine History of Endocrine Disorders: No HEENT History of HEENT Disorders: No Cancer History of Cancer: Yes (squamous cell carcinoma) Cancer: Skin Psychosocial History of Psychiatric Problem: No Integumentary History of Skin or Integumenta: No Blood Transfusions History of Blood Disorders: No Adverse Reaction to a Blood Tr: No Family Medical History Significant Family History: No Pertinent Family Hx Physical Exam Vital Signs Vital Sign - Last 12Hours 05/31/17 09:42 Temp 98.4 Pulse 70 Resp 16 B/P (MAP) 142/72 Pulse Ox 98 Capillary Refill : General Appearance: WD/WN, no apparent distress HEENT: normal ENT inspection Neck: full range of motion Respiratory: chest non-tender, lungs clear, normal breath sounds, no respiratory distress, no accessory muscle use, respiratory distress Cardiovascular: normal peripheral pulses, regular rate, rhythm, no edema, no gallop, no JVD, no murmur Gastrointestinal: normal bowel sounds, non tender, soft, no organomegaly, no pulsatile mass Back: normal inspection, no CVA tenderness, no vertebral tenderness, CVA tenderness (R), CVA tenderness (L) Extremities: normal range of motion, non-tender, normal inspection, no pedal edema, no calf tenderness, normal capillary refill, pelvis stable Neurologic/Psychiatric: coal washer II-XII nml as tested, no motor/sensory deficits, alert, normal mood/affect, oriented x 3, abnormal cerebellar tests Crainal Nerves: normal hearing, normal speech Skin: normal color, warm/dry, other (there is a small circular eschar at the right nasal ala. There is a superficial abrasion at the temporal border of the left brow also from scratching) Lymphatic: no adenopathy Comments The patient is oriented only to person Progress/Results/Core Measures Results/Orders Lab Results Laboratory Tests Test 05/31/17 09:50 05/31/17 11:30 Range/Units White Blood Count 7.2 4.3-11.0 10^3/uL Red Blood Count 4.29 L 4.35-5.85 10^6/uL Hemoglobin 13.4 11.5-16.0 G/DL Hematocrit 41 35-52 % Mean Corpuscular Volume 96 80-99 FL Mean Corpuscular Hemoglobin 31 25-34 PG Mean Corpuscular Hemoglobin Concent 33 32-36 G/DL Red Cell Distribution Width 13.9 10.0-14.5 % Platelet Count 425 H 130-400 10^3/uL Mean Platelet Volume 9.2 7.4-10.4 FL Neutrophils (%) (Auto) 42 42-75 % Lymphocytes (%) (Auto) 39 12-44 % Monocytes (%) (Auto) 7 0-12 % Eosinophils (%) (Auto) 11 H 0-10 % Basophils (%) (Auto) 1 0-10 % Neutrophils # (Auto) 3.0 1.8-7.8 X 10^3 Lymphocytes # (Auto) 2.8 1.0-4.0 X 10^3 Monocytes # (Auto) 0.5 0.0-1.0 X 10^3 Eosinophils # (Auto) 0.8 H 0.0-0.3 10^3/uL Basophils # (Auto) 0.0 0.0-0.1 10^3/uL Sodium Level 141 135-145 MMOL/L Potassium Level 3.5 L 3.6-5.0 MMOL/L Chloride Level 102 98-107 MMOL/L Carbon Dioxide Level 30 21-32 MMOL/L Anion Gap 9 5-14 MMOL/L Blood Urea Nitrogen 15 7-18 MG/DL Creatinine 0.79 0.60-1.30 MG/DL Estimat Glomerular Filtration Rate > 60 BUN/Creatinine Ratio 19 Glucose Level 129 H 70-105 MG/DL Calcium Level 9.7 8.5-10.1 MG/DL Total Bilirubin 0.3 0.1-1.0 MG/DL Aspartate Amino Transf (AST/SGOT) 22 5-34 U/L Alanine Aminotransferase (ALT/SGPT) 16 0-55 U/L Alkaline Phosphatase 197 H 40-136 U/L Total Protein 7.5 6.4-8.2 GM/DL Albumin 3.6 3.2-4.5 GM/DL Urine Color YELLOW Urine Clarity CLEAR Urine pH 5 5-9 Urine Specific [place] 1.025 H 1.016-1.022 Urine Protein 1+ H NEGATIVE Urine Glucose (UA) NEGATIVE NEGATIVE Urine Ketones NEGATIVE NEGATIVE Urine Nitrite NEGATIVE NEGATIVE Urine Bilirubin NEGATIVE NEGATIVE Urine Urobilinogen NORMAL NORMAL MG/DL Urine Leukocyte Esterase NEGATIVE NEGATIVE Urine RBC (Auto) NEGATIVE NEGATIVE Urine RBC NONE /HPF Urine WBC RARE /HPF Urine Squamous Epithelial Cells 0-2 /HPF Urine Crystals NONE /LPF Urine Bacteria NEGATIVE /HPF Urine Casts NONE /LPF Urine Mucus SMALL H /LPF Urine Culture Indicated NO My Orders Orders - VANGIE ROBLERO MD Ekg Tracing (05/31/17 09:50) Cbc With Automated Diff (05/31/17 10:22) Comprehensive Metabolic Panel (05/31/17 10:22) Ua Culture If Indicated (05/31/17 10:22) Ondansetron Injection (Zofran Injectio (05/31/17 10:45) Ondansetron Injection (Zofran Injectio (05/31/17 10:41) Phenytoin Capsule (Dilantin Capsule) (05/31/17 21:00) Medications Given in ED Current Medications Medications Dose Ordered Sig/Pelon Route Start Time Stop Time Status Last Admin Dose Admin Ondansetron HCl 4 mg STK-MED ONCE .ROUTE 05/31/17 10:41 05/31/17 10:49 DC 05/31/17 10:55 8 MG Vital Signs/I&O Vital Sign - Last 12Hours 05/31/17 09:42 Temp 98.4 Pulse 70 Resp 16 B/P (MAP) 142/72 Pulse Ox 98 Departure Communication (Admissions) Progress Notes [address] Hills. Given the negative lab workup the patient will be empirically placed on Dilantin and discharged. It was discussed with the family that she may be approaching their ability to care for her at home. Her [id number] understands but wishes to continue to try to provide care at home at the present. Impression Impression: Primary Impression: severe dementia Additional Impression: syncopal versus seizure event Disposition: HOME, SELF-CARE Condition: Stable/Unchanged Departure-Patient Inst. Decision time for Depature: 11:58 Referrals: ATIYA HILLS MD (PCP/Family) Primary Care Physician Patient Instructions: Seizures, Adult (DC) Add. Discharge Instructions: All discharge instructions reviewed with patient and/or family. Voiced understanding. Take Dilantin as prescribed. Appointment Dr. Hills within a week for reevaluation and Dilantin level in blood. VANGIE ROBLERO MD May 31, 2017 10:44
[2017-05-31] MEDS ORDERED: ONDANSETRON 4 MG/2 ML (SDV) Z0FRAN IVP ONE (10:45)
[2017-05-31 11:36] LABS: BILIRUBIN,URINE NEGATIVE (NEGATIVE); KETONES,URINE NEGATIVE (NEGATIVE); LEUKOCYTE ESTERASE ,URINE NEGATIVE (NEGATIVE); NITRITE,URINE NEGATIVE (NEGATIVE); PH,URINE 5 (5-9); PROTEIN,URINE 1+ (NEGATIVE); UROBILINOGEN,URINE NORMAL (NORMAL)
[2017-05-31 11:43] LABS: SQUAMOUS EPITHELIAL CELL,UR 0-2 /HPF; WBC,URINE RARE /HPF
[2017-05-31] MEDS ORDERED: PHENYTOIN 100 MG (DILANTIN) CAP PO ONE (11:53)
[2017-05-31] MEDS ORDERED: PHEN100C4 PO (12:04)
[2017-05-31] MEDS ORDERED: ONDA4TAB8 PO (12:10)
[2017-05-31 12:23] VITALS: BP 142/80
[2017-05-31] MEDS ORDERED: PHENYTOIN 100 MG (DILANTIN) CAP PO SCH (21:00)
== END 2017-05-31 12:23 | disposition home or self-care (01) ==
LOC: EDUNIT# 09:42 → ER 09:43
DX: F03.90 Unspecified dementia, unspecified severity, without behavioral disturbance, psychotic disturbance, mood disturbance, and anxiety (principal); G30.9 Alzheimer's disease, unspecified; I10 Essential (primary) hypertension; Z85.828 Personal history of other malignant neoplasm of skin
CPT/HCPCS: 36415; 51701; 80053; 81000; 85025; 93005; 96374